=== PATIENT | female | born 1980 | race Asian ===

== ENCOUNTER 2019-11-22 14:21 | Emergency (ER) | payer MEDICAID ==
[~2019-11-22] VITALS: Ht 167.6 cm; Wt 85.0 kg
[~2019-11-22 14:21] MED LIST: CLIN-97 PO; CLIN150C8 PO; HYDR-4383 PO; ONDA4TAB6 PO; PROC-8 PO; [UNRECOGNIZED DRUG - CODE] PO
[2019-11-22 14:25] VITALS: BP 128/41
[2019-11-22] MEDS ORDERED: dexamethasone 4mg tablet PO ONE (14:50)
[2019-11-22] MEDS ORDERED: HYDROcodone/acetaminophen 5mg/325mg tablet PO ONE (14:50)
[2019-11-22] MEDS ORDERED: ondansetron 4mg rapidly disintigrating tab PO ONE (14:50)
[2019-11-22] MEDS ORDERED: clindamycin 150mg capsule PO ONE (14:50)
[2019-11-22] MEDS ORDERED: metroNIDAZOLE 500mg tablet PO ONE (14:50)
[2019-11-22] MEDS ORDERED: METH4TAB81 PO (14:52)
[2019-11-22] MEDS ORDERED: HYDR-3965 PO (14:52)
[2019-11-22] MEDS ORDERED: METR500T PO (14:52)
[2019-11-22] MEDS ORDERED: CLIN150C2 PO (14:52)
[2019-11-22] MEDS ORDERED: ONDA4TAB6 PO (14:52)
== END 2019-11-22 15:16 | disposition home or self-care (01) ==
LOC: ER 14:22
DX: K04.7 Periapical abscess without sinus (principal); K08.89 Other specified disorders of teeth and supporting structures; G89.29 Other chronic pain; F12.90 Cannabis use, unspecified, uncomplicated; Z86.14 Personal history of Methicillin resistant Staphylococcus aureus infection; Z90.89 Acquired absence of other organs; Z72.89 Other problems related to lifestyle; Z56.0 Unemployment, unspecified; Z88.1 Allergy status to other antibiotic agents; Z88.8 Allergy status to other drugs, medicaments and biological substances; Z79.2 Long term (current) use of antibiotics; Z79.899 Other long term (current) drug therapy
CPT/HCPCS: 99284; J3490

== ENCOUNTER 2021-01-24 09:48 | Emergency (ER) | payer MEDICAID ==
[~2021-01-24] VITALS: Ht 167.6 cm; Wt 100.0 kg
[~2021-01-24 09:48] MED LIST changes: +METH4TAB81 PO
[2021-01-24 09:50] VITALS: BP 113/67
[2021-01-24] MEDS ORDERED: DOXY100C76 PO (11:27)
== END 2021-01-24 12:07 | disposition home or self-care (01) ==
LOC: ER 09:48
DX: J32.8 Other chronic sinusitis (principal); R51.9 Headache, unspecified; G89.29 Other chronic pain; F12.90 Cannabis use, unspecified, uncomplicated; Z86.14 Personal history of Methicillin resistant Staphylococcus aureus infection; Z90.89 Acquired absence of other organs; Z72.89 Other problems related to lifestyle; Z56.0 Unemployment, unspecified; Z88.1 Allergy status to other antibiotic agents; Z88.0 Allergy status to penicillin; Z88.8 Allergy status to other drugs, medicaments and biological substances; Z79.2 Long term (current) use of antibiotics; Z79.899 Other long term (current) drug therapy
CPT/HCPCS: 99283

== ENCOUNTER 2021-02-07 10:34 | Emergency (ER) | payer MEDICAID ==
[~2021-02-07] VITALS: Ht 167.6 cm; Wt 95.0 kg
[2021-02-07] MEDS ORDERED: normal saline 1000ml 1,000 ML IV STA (11:33)
[2021-02-07] MEDS ORDERED: acetaminophen 325mg tablet PO STA (11:33)
[2021-02-07 12:31] VITALS: BP 119/39
== END 2021-02-07 12:37 | disposition home or self-care (01) ==
LOC: ER 10:34
DX: U07.1 COVID-19 (principal); R50.9 Fever, unspecified; R05 Cough; R06.02 Shortness of breath; G89.29 Other chronic pain; F12.90 Cannabis use, unspecified, uncomplicated; Z86.14 Personal history of Methicillin resistant Staphylococcus aureus infection; Z72.89 Other problems related to lifestyle; Z56.0 Unemployment, unspecified; Z90.89 Acquired absence of other organs; Z88.0 Allergy status to penicillin; Z88.1 Allergy status to other antibiotic agents; Z88.8 Allergy status to other drugs, medicaments and biological substances; Z79.2 Long term (current) use of antibiotics; Z79.899 Other long term (current) drug therapy
CPT/HCPCS: 96360; 99283; J7030

== ENCOUNTER 2021-03-24 08:51 | Emergency (ER) | payer MEDICAID ==
[~2021-03-24] VITALS: Ht 167.6 cm; Wt 95.5 kg
[2021-03-24 09:19] VITALS: BP 122/62
== END 2021-03-24 14:14 | disposition left against medical advice (07) ==
LOC: ER 08:51
DX: K59.00 Constipation, unspecified (principal); Z53.21 Procedure and treatment not carried out due to patient leaving prior to being seen by health care provider
CPT/HCPCS: 74018; 99283

== ENCOUNTER 2021-05-22 17:55 | Emergency (ER) | payer MEDICAID ==
[~2021-05-22] VITALS: Ht 167.6 cm; Wt 96.0 kg
[2021-05-22 18:15] VITALS: BP 102/61
[2021-05-22] MEDS ORDERED: HYDR-3965 PO (18:19)
[2021-05-22] MEDS ORDERED: NAPR-56 PO (18:19)
== END 2021-05-22 19:46 | disposition home or self-care (01) ==
LOC: ER 17:55
DX: K08.89 Other specified disorders of teeth and supporting structures (principal); R50.9 Fever, unspecified; K00.7 Teething syndrome; G89.29 Other chronic pain; F12.90 Cannabis use, unspecified, uncomplicated; Z86.14 Personal history of Methicillin resistant Staphylococcus aureus infection; Z90.89 Acquired absence of other organs; Z72.89 Other problems related to lifestyle; Z56.0 Unemployment, unspecified; Z88.0 Allergy status to penicillin; Z88.1 Allergy status to other antibiotic agents; Z88.8 Allergy status to other drugs, medicaments and biological substances; Z79.2 Long term (current) use of antibiotics; Z79.899 Other long term (current) drug therapy
CPT/HCPCS: 99283

== ENCOUNTER 2021-07-21 19:50 | Emergency (ER) | payer MEDICAID ==
[~2021-07-21] VITALS: Ht 167.6 cm; Wt 95.9 kg
[2021-07-21 19:56] VITALS: BP 137/51
[2021-07-21 20:39] LABS: BASOPHILS % (AUTO) 0.7 % (0-1); EOSINOPHILS # (AUTO) 0.3 X10'3 (0-0.9); EOSINOPHILS % (AUTO) 4.3 % (0-6); HEMATOCRIT 31.1 % (35.0-45.0); HEMOGLOBIN 9.4 g/dl (12.0-16.0); LYMPHOCYTES # (AUTO) 2.3 X10'3 (1.1-4.8); LYMPHOCYTES % (AUTO) 31.1 % (21-51); MEAN CORPUSCULAR HEMOGLOBIN 20.9 PG (27.0-31.0); MEAN CORPUSCULAR HGB CONC 30.3 g/dL (33.0-36.5); MEAN PLATELET VOLUME 6.4 FL (7.4-10.4); MONOCYTES # (AUTO) 0.7 X10'3 (0-0.9); MONOCYTES % (AUTO) 9.6 % (2-12); NEUTROPHILS # (AUTO) 3.9 X10'3 (1.8-7.7); NEUTROPHILS % (AUTO) 54.3 % (42-75); PLATELET COUNT 463 X10'3 (140-440); RED BLOOD COUNT 4.51 X10'6 (4.20-5.60); RED CELL DISTRIBUTION WIDTH 19.3 % (11.5-14.5); WHITE BLOOD COUNT 7.3 X10'3 (4.5-11.0)
[2021-07-21 21:05] LABS: ALANINE AMINOTRANSFERASE 20 U/L (12-78); ALBUMIN 3.9 G/DL (3.4-5.0); ALBUMIN/GLOBULIN RATIO 1.2 (1.1-1.5); ALKALINE PHOSPHATASE 76 IU/L (46-116); ANION GAP 11 (8-16); ASPARTATE AMINO TRANSFERASE 19 U/L (10-37); BILIRUBIN,TOTAL 0.2 MG/DL (0.1-1.0); BLOOD UREA NITROGEN 15 MG/DL (7-18); BUN/CREATININE RATIO 26.3 (6.6-38.0); CALCIUM 8.6 MG/DL (8.5-10.1); CHLORIDE 105 MMOL/L (99-107); CREATININE 0.57 MG/DL (0.40-0.90); GLUCOSE 104 MG/DL (70-104); POTASSIUM 3.9 MMOL/L (3.5-5.1); SODIUM 139 MMOL/L (135-145); TOTAL CARBON DIOXIDE 23.4 MMOL/L (24-32); TOTAL PROTEIN 7.1 G/DL (6.4-8.2); eGFR > 90 ML/MIN
[2021-07-22 00:01] LABS: ANISOCYTOSIS 2+; MICROCYTOSIS 2+; PLATELET ESTIMATE INCREASED
[2021-07-22 00:03] LABS: BURR CELLS FEW; ELLIPTOCYTES FEW
== END 2021-07-22 03:53 | disposition left against medical advice (07) ==
LOC: ER 19:51
DX: K08.89 Other specified disorders of teeth and supporting structures (principal); Z53.21 Procedure and treatment not carried out due to patient leaving prior to being seen by health care provider
CPT/HCPCS: 36415; 80053; 83605; 85008; 85025

== ENCOUNTER 2021-11-21 18:18 | Emergency (ER) | payer MEDICAID ==
[~2021-11-21] VITALS: Ht 167.6 cm; Wt 95.5 kg
[2021-11-21 18:35] VITALS: BP 123/68
[2021-11-21] MEDS ORDERED: ondansetron 4mg rapidly disintigrating tab PO ONE (19:00)
[2021-11-21] MEDS ORDERED: proCHLORperazine 10 MG/2 ml inj IM ONE (19:00)
[2021-11-21] MEDS ORDERED: normal saline 1000ml 1,000 ML IV ONE (19:00)
[2021-11-21] MEDS ORDERED: ketorolac tromethamine 15mg/ml inj. IM ONE (19:40)
[2021-11-21] MEDS ORDERED: ONDA4TAB12 PO (20:09)
== END 2021-11-21 20:25 | disposition home or self-care (01) ==
LOC: ER 18:19
DX: R51.9 Headache, unspecified (principal); Z20.822 Contact with and (suspected) exposure to COVID-19; R11.2 Nausea with vomiting, unspecified; G89.29 Other chronic pain; M54.9 Dorsalgia, unspecified; Z86.14 Personal history of Methicillin resistant Staphylococcus aureus infection; F12.10 Cannabis abuse, uncomplicated; Z88.0 Allergy status to penicillin; Z88.1 Allergy status to other antibiotic agents
CPT/HCPCS: 70450; 87635; 96372; 99284; C9803; J0780; J7030

== ENCOUNTER 2022-11-30 18:16 | Emergency (ER) | payer MEDICAID ==
[~2022-11-30] VITALS: Ht 162.6 cm; Wt 95.5 kg
[~2022-11-30 18:16] MED LIST changes: +CEPH-585 PO; +CLIN-214 PO; -CLIN150C8 PO; +ONDA4TAB12 PO
[2022-11-30 18:40] VITALS: BP 113/68
[2022-11-30 20:01] LABS: ALANINE AMINOTRANSFERASE 18 U/L (12-78); ALBUMIN 3.9 G/DL (3.4-5.0); ALBUMIN/GLOBULIN RATIO 1.2 (1.1-1.5); ALKALINE PHOSPHATASE 68 IU/L (46-116); ANION GAP 9 (8-16); ASPARTATE AMINO TRANSFERASE 15 U/L (10-37); BASOPHILS % (AUTO) 0.7 % (0-1); BILIRUBIN,TOTAL 0.3 MG/DL (0.1-1.0); BLOOD UREA NITROGEN 15 MG/DL (7-18); BUN/CREATININE RATIO 21.4 (10.0-20.0); CALCIUM 8.5 MG/DL (8.5-10.1); CHLORIDE 107 MMOL/L (99-107); EOSINOPHILS # (AUTO) 0.2 X10'3 (0-0.9); EOSINOPHILS % (AUTO) 4.6 % (0-6); GLUCOSE 102 MG/DL (70-104); HEMATOCRIT 33.4 % (35.0-45.0); HEMOGLOBIN 10.4 g/dl (12.0-16.0); LYMPHOCYTES # (AUTO) 1.6 X10'3 (1.1-4.8); LYMPHOCYTES % (AUTO) 35.2 % (21-51); MEAN CORPUSCULAR HEMOGLOBIN 23.7 PG (27.0-31.0); MEAN CORPUSCULAR HGB CONC 31.2 g/dL (33.0-36.5); MEAN CORPUSCULAR VOLUME 75.8 FL (78-98); MEAN PLATELET VOLUME 7.4 FL (7.4-10.4); MONOCYTES # (AUTO) 0.5 X10'3 (0-0.9); MONOCYTES % (AUTO) 10.1 % (2-12); NEUTROPHILS # (AUTO) 2.2 X10'3 (1.8-7.7); NEUTROPHILS % (AUTO) 49.4 % (42-75); PLATELET COUNT 202 X10'3 (140-440); POTASSIUM 3.5 MMOL/L (3.5-5.1); RED BLOOD COUNT 4.41 X10'6 (4.20-5.60); RED CELL DISTRIBUTION WIDTH 19.3 % (11.5-14.5); SODIUM 144 MMOL/L (135-145); TOTAL CARBON DIOXIDE 27.7 MMOL/L (24-32); TOTAL PROTEIN 7.1 G/DL (6.4-8.2); WHITE BLOOD COUNT 4.5 X10'3 (4.5-11.0); eGFR > 90 ML/MIN
[2022-11-30 20:05] LABS: HCG SERUM QL NEGATIVE
[2022-11-30 20:08] LABS: BETA HCG,QUANTITATIVE < 1.0 mIU/ml
[2022-11-30 20:47] LABS: ANISOCYTOSIS 2+; HYPOCHROMASIA 1+; MICROCYTOSIS 1+; PLATELET ESTIMATE NORMAL
[2022-11-30 20:49] LABS: ELLIPTOCYTES FEW; POLYCHROMASIA FEW; TARGET CELLS FEW
== END 2022-11-30 22:28 | disposition left against medical advice (07) ==
LOC: ER 18:17
DX: N93.9 Abnormal uterine and vaginal bleeding, unspecified (principal); Z53.21 Procedure and treatment not carried out due to patient leaving prior to being seen by health care provider
CPT/HCPCS: 36415; 80053; 84702; 84703; 85008; 85025; 86885; 86900; 86901; 99281

== ENCOUNTER → 2023-10-22 | Outpatient (CLI) | payer MEDICAID ==
[~2023-10-22] MED LIST changes: -CEPH-585 PO
== END | disposition home or self-care (01) ==
LOC: VAS 11:37
PROVIDERS: ATTEND Obstetrics & Gynecology
DX: R60.0 Localized edema (principal)
CPT/HCPCS: 93970

== ENCOUNTER 2024-11-21 04:32 | Emergency (ER) | payer MEDICAID ==
[~2024-11-21] VITALS: Ht 162.6 cm; Wt 109.1 kg
[~2024-11-21 04:32] MED LIST changes: +ONDA-243 PO; -ONDA4TAB12 PO
--- NOTE | 2024-11-21 05:18 | Physician Documentation ---
History of Present Illness ~ Chief Complaint: Back Pain Stated Complaint: BACK PAIN Time Seen by MD: 05:15 Primary Medical Doctor: NONE Mode of Arrival: POV HPI Patient presents to the emergency room for evaluation of bilateral lumbar pain. This has been going on for the past few days. She states she has had similar symptoms previously and ended up being an STD and this is her concern. No dysuria. She has had nothing for the pain. She states that the pain is worse when she 1st wakes up in the morning then loosens up as the day goes by. Medication Reconciliation Allergies: Coded Allergies: tetracycline (Verified Allergy, Severe, 04/26/22) Penicillins (Verified Allergy, Intermediate, HIVES, 04/26/22) diphenhydramine HCl (Verified Allergy, Intermediate, 04/26/22) Scheduled Clindamycin HCL* (Clindamycin HCL*), 1 CAP PO Q6H Clindamycin HCl (Clindamycin HCl CAPSULE), 3 CAP PO TID Hydrocodone/Acetaminophen (Supai 5-325 Tablet), 1 TABLET PO TID Methylprednisolone (Medrol Dosepak), 1 TAB PO UD ONDANSETRON ODT 4mg tablet (Ondansetron Odt), 1 TABLET PO Q6H Ondansetron Hcl (Zofran), 1 TAB PO Q6H PRN Phenylephrine/Dm/Acetaminop/GG (Sudafed PE Pressure+Pain+Cold), 1 TAB PO Q6H Scheduled PRN Hydrocodone/Acetaminophen (Supai 5-325 Tablet), 1 TABLET PO Q4H PRN for pain Ondansetron Hcl (Zofran), 1 TAB PO Q6H PRN for nausea/vomiting Prochlorperazine Maleate (Compazine), 1 TAB PO Q8HPRN PRN for pain Past Medical History Past Medical History: Chronic Back Pain, MRSA Abscess Past Surgical History: tonsillectomy Alcohol Use: Occasionally Drug Use: marijuana Lives with: S/O Occupation: unemployed Review of Systems ROS All review of systems negative except as per HPI Physical Exam Physical Exam Vital Signs: Temperature: 97.2, Heart Rate: 84, Respiratory Rate: 17, BP: 105/53, Pulse Oximetry: 96, Weight: 109.090 Physical Exam General: Patient is awake, alert, oriented x4 in no acute distress Head: Normocephalic and atraumatic. Eyes: Conjunctival normal. EOMI. PERRL. ENT: Mucous membranes moist. Neck: Supple, trachea is midline. Chest: Clear to auscultation bilaterally without rales, rhonchi, or wheezes. There is no accessory muscle use or retractions. Cardiac: RRR without murmurs, gallops, or rubs. Back: No midline spinal or CVA tenderness. No tenderness elicited to lower back at all Progress Results/Orders Results/Orders Orders - MERLIN CORDOVA MD Chlam/Gc Amp Ur (11/21/24 05:22) Completed Orders - MERLIN CORDOVA MD Ibuprofen Tablet (Motrin Tablet) (11/21/24 05:25) Acetaminophen 325mg Tablet (Tylenol Tabl (11/21/24 05:25) Urinalysis, Cult If Indicated (11/21/24 05:22) Medications Received in ER Medications (Trade) Dose Ordered Sig/Marj Route PRN Reason Start Time Stop Time Status Last Admin Dose Admin (Motrin tablet) 800 mg ONCE ONCE PO 11/21/24 05:25 11/21/24 05:26 DC 11/21/24 05:32 800 MG (Tylenol tablet) 975 mg ONCE ONCE PO 11/21/24 05:25 11/21/24 05:26 DC 11/21/24 05:31 975 MG Vital Signs 11/21/24 11/21/24 11/21/24 04:37 05:02 05:04 Temp 97.2 Pulse 89 84 Resp 16 17 17 B/P (MAP) 122/51 105/53 (70) Pulse Ox 98 96 Laboratory Tests Test 11/21/24 05:19 Urine Specimen Description Cln catch midstream Urine Color Yellow Urine Clarity Clear Urine pH 6.0 Urine Specific [place] 1.025 Urine Protein Negative Urine Glucose (UA) Negative Urine Ketones Negative Urine Occult Blood Negative Urine Nitrite Negative Urine Bilirubin Negative Urine Urobilinogen 0.2 Urine Leukocyte Esterase Negative Urine Culture Indicated Not ind Volume Urine Centrifuged 10 ml Urine Comment Medical Decision Making Findings Urinalysis is negative. I suspect musculoskeletal pain. Ibuprofen and Tylenol for pain discussed. We will call patient with cultures if they are positive. Departure Disposition: HOME / SELF CARE / HOMELESS Impression: Primary Impression: Lumbago Condition: Stable Discharge Instructions: Acute Back Pain, Adult Additional Instructions: You may take both ibuprofen and Tylenol [id number] for pain. These medicines can be taken together. Referrals: NO PRIMARY CARE PROVIDER (PCP) Education Educated: Patient Educated regarding: diagnosis, treatment, need for follow up Signature Scribe Signature: No scribe Attestation: The note accurately reflects work and decisions made by me.Merlin Cordova MD 11/21/24 06:04 MERLIN CORDOVA MD Nov 21, 2024 05:18
[2024-11-21] MEDS: acetaminophen 325mg tablet PO ONE (05:31)
[2024-11-21] MEDS: ibuprofen tablet 400 MG TABLET PO ONE (05:32)
[2024-11-21 05:43] LABS: BILIRUBIN,URINE NEGATIVE (Neg); CLARITY,URINE CLEAR (Clear); COLOR,URINE YELLOW (Yellow); GLUCOSE, URINE NEGATIVE (Neg); KETONES,URINE NEGATIVE (Neg); LEUKOCYTE ESTERASE ,URINE NEGATIVE (Neg); NITRITES, URINE NEGATIVE (Neg); OCCULT BLOOD,URINE NEGATIVE (Neg); PROTEIN,URINE NEGATIVE (Neg); UROBILINOGEN,URINE 0.2 E.U/dL (0.2-1.0)
[2024-11-21 05:48] LABS: UA COLLECTION TYPE CLN CATCH MIDSTREAM
[2024-11-21 06:09] VITALS: BP 105/53; PULSE 77; RESP 14; TEMP 97.2; O2SAT 100
[2024-11-23 05:15] LABS: CHLAMYDIA TRACHOMATIS, NAA Negative (Negative)
== END 2024-11-21 06:11 | disposition home or self-care (01) ==
LOC: ER 04:33
DX: M54.50 Low back pain, unspecified (principal); F12.90 Cannabis use, unspecified, uncomplicated; Z88.0 Allergy status to penicillin; Z88.1 Allergy status to other antibiotic agents; Z88.8 Allergy status to other drugs, medicaments and biological substances; Z90.89 Acquired absence of other organs
CPT/HCPCS: 36415; 81003; 87491; 99284